=== PATIENT | female | born 1955 | race Caucasian/White ===

== ENCOUNTER 2018-07-07 10:59 | Inpatient (IN) | payer MEDICAID ==
[~2018-07-07] VITALS: Ht 160 cm; Wt 54.4 kg
--- NOTE | ~2018-07-07 | OP ---
PATIENT NAME: BAHMAN MACKENZIE MEDICAL RECORD: [id number] :[birth year] LOCATION:D.MS [facility] ADMISSION DATE:07/07/18 SURGEON: DELMY ROMANO MD DATE OF OPERATION: 07/07/2018 PREOPERATIVE DIAGNOSES: 1. Acute cholecystitis with localized peritonitis. 2. Elevated liver function test. POSTOPERATIVE DIAGNOSES: 1. Acute cholecystitis with localized peritonitis. 2. Elevated liver function test. 3. Bilious ascites. PROCEDURES: 1. Laparoscopic cholecystectomy. 2. Intraoperative cholangiography without immediate surgeon interpretation. 3. A 14-gauge core needle liver biopsy. SURGEON: Delmy Romano MD STRADDLE CARRIER OPERATOR: None. BLOOD LOSS: Less than 25 cc. ANESTHESIA: General. COMPLICATIONS: None. The risks, possible complications, and alternatives to the procedure were explained to the patient. She elects to proceed. The discussion specifically included, but was not limited to, bleeding requiring emergency reoperation, infection, intestinal injury, common bile duct injury. The patient has been febrile. She has elevated liver function tests including AST and ALT. I saw the patient prior to surgery. DESCRIPTION OF PROCEDURE: The patient was conveyed to the operating room urgently on 07/07/2018. General anesthesia was induced by the anesthesia staff. The abdomen was sterilely prepped and draped. A small skin lul was accomplished in the left upper quadrant. A Veress needle was inserted through the skin lul into the peritoneal cavity. CO2 insufflation was begun. Once a sufficient pneumoperitoneum had been achieved, a 5-mm trocar was inserted through an incision in the left upper quadrant. Under direct internal vision utilizing the television camera, a 12-mm trocar was inserted through an incision at the umbilicus. Another 5-mm trocar was inserted through an incision in the right upper quadrant. Another 5-mm trocar was inserted through an incision far laterally in the right upper quadrant. During insertion of the Veress needle and all trocars, there appeared to have been no injury to the bowels, any intraperitoneal or retroperitoneal structures. Abdominal survey was undertaken. There was purulence around the gallbladder. Omentum had also wrapped around the gallbladder. Bilious ascites was noted lateral to the liver. This was aspirated. OPERATIVE REPORT [id number] BAHMAN MACKENZIE The indication for the liver biopsy was elevated liver function test. Under laparoscopic guidance, I percutaneously accessed the right upper quadrant utilizing a 14-gauge core biopsy device. Cores were obtained over the convexity of the liver. The biopsy sites were made hemostatic with electrocautery. I then swept down the omentum which was stuck to the gallbladder. The gallbladder was acutely inflamed. I noted no gangrene or full-thickness necrosis however. I advanced a cholangiogram trocar. I punctured the fundus of the gallbladder. I aspirated what appeared to be turbid mucoid material, indicating that this is likely acute cholecystitis due to a mucocele of the gallbladder. I then injected dye. Real time cholangiographic images were obtained and these were sent to the radiologist for interpretation. I then aspirated bile and mucus, and withdrew the cholangiogram trocar. The gallbladder was grasped and retracted cephalad. The infundibulum was grasped and retracted laterally. Blunt dissection was begun in the triangle of Calot. The critical view was identified. The cystic artery was clipped multiply and divided between clips. I noted that the cystic duct was thickened and somewhat dilated. This was going to require a larger clip. I exchanged the left upper quadrant 5-mm trocar for a 12-mm trocar. I then advanced the nondisposable clip bushing press operator and applied large clips around the cystic duct. I then transected the cystic duct between the clips. I then excised the gallbladder from the liver utilizing the electrocautery. The gallbladder and stones were removed in 2 separate endoscopic retrieval bags. The 12-mm trocar was replaced and the abdomen was reinsufflated. I irrigated and aspirated the right upper quadrant. There was no bleeding even at low pressure of 8. The 12-mm trocar sites were closed with the Emeterio-Nura suture closure device and #0 Vicryl sutures. All the trocars were removed and the abdomen was desufflated. Skin incision at the umbilicus was closed with interrupted 4-0 Vicryl Rapide sutures. The other skin incisions were closed with interrupted intracuticular 3-0 Vicryls. Benzoin and Steri-Strips were applied. The patient was then extubated and conveyed to the postanesthesia care unit, where she was in stable condition. My plan is that she may be dismissed home tomorrow. TRANSINT:[id number] Voice Confirmation ID: [id number] DOCUMENT ID: [id number] OPERATIVE REPORT [id number] BAHMAN MACKENZIE ROBERT MD CC: CELIA ANAND MD [id number] DICTATION DATE: 07/08/18 140 MICA MACHINE OPERATOR: 07/08/18 193 ADM IN [place] [address] [place] [id number]
[2018-07-07] MEDS ORDERED: TIROSINT25 MCG PO (11:11)
[2018-07-07] MEDS ORDERED: NEURONTIN800 MG PO (11:11)
[2018-07-07] MEDS ORDERED: ZOLOFT25 MG PO (11:17)
[2018-07-07 11:22] LABS: BASOPHILS 0.1 % (0-2); EOSINOPHILS 0.4 % (0-7); HEMATOCRIT 44.2 % (36.0-48.0); HEMOGLOBIN 15.2 g/dL (12-16); IMMATURE GRANULOCYTES 0.3 % (0-5); LYMPHOCYTES 11.4 % (15-50); MCH 31.7 pg (26.0-34.0); MCHC 34.4 g/dL (31.0-37.0); MCV 92.3 fL (80.0-100.0); MEAN PLATELET VOLUME 10.9 fL (7.4-10.4); MONOCYTES 7.4 % (2-11); NEUTROPHILS 80.4 % (40-80); PLATELET COUNT 222 10x3/uL (130-400); RBC 4.79 10x6/uL (4.00-5.40); RDW 13.7 % (11.5-14.5); WBC 15.6 10x3/uL (4.8-10.8)
[2018-07-07 11:36] LABS: APTT 26.5 SECONDS (22.8-39.4); INR 0.95 (0.85-1.17); PROTIME 12.2 SECONDS (11.6-15.0)
[2018-07-07 11:40] LABS: ALBUMIN 3.8 g/dL (3.4-5.0); ALKALINE PHOSPHATASE 74 U/L (46-116); ALT (SGPT) 28 U/L (10-68); BILIRUBIN - TOTAL 0.72 mg/dL (0.2-1.3); CALC OSMOLALITY 278 mosm/kg (275-300); CALCIUM 8.9 mg/dL (8.5-10.1); CARBON DIOXIDE 27.4 mmol/L (21.0-32.0); CHLORIDE - SERUM 103 mmol/L (98-107); CREATININE - SERUM 0.5 mg/dL (0.6-1.3); GLUCOSE 113 mg/dL (74-106); POTASSIUM - SERUM 3.8 mmol/L (3.5-5.1); PROTEIN - SERUM 7.1 g/dL (6.4-8.2); SODIUM 140 mmol/L (136-145); UREA NITROGEN 9 mg/dL (7-18); eGFR NON AFRICAN AMERICAN > 90 mL/min (90-120)
[2018-07-07 11:52] LABS: CKMB 0.4 U/L (0.0-3.6); CREATINE KINASE 99 UL (21-215)
[2018-07-07 11:53] LABS: TROPONIN-I < 0.017 ng/mL (0.000-0.060)
[2018-07-07 12:23] LABS: APPEARANCE CLEAR (CLEAR); BILIRUBIN NEGATIVE (NEGATIVE); COLOR YELLOW (YELLOW); GLUCOSE NEGATIVE (NEGATIVE); KETONE NEGATIVE (NEGATIVE); NITRITE NEGATIVE (NEGATIVE); PROTEIN NEGATIVE (NEGATIVE); SPECIFIC GRAVITY 1.005 (1.005-1.020); UROBILINOGEN NORMAL (NORMAL)
[2018-07-07 12:24] LABS: AMORPHOUS SEDIMENT >1+ /lpf (NONE SEEN); BACTERIA MODERATE /hpf (NONE SEEN); EPITHELIAL CELLS OCC /hpf (0-5); MUCUS >1+ /lpf (NONE SEEN); WHITE CELLS - URINE 0-5 /hpf (0-5)
[2018-07-07 13:01] VITALS: BP 120/60
[2018-07-07 14:00] VITALS: BP 118/62
[2018-07-07 16:54] VITALS: BP 122/63
[2018-07-07 17:33] VITALS: BP 112/52; BMI 21.3
--- NOTE | 2018-07-07 17:41 | MORECARE ---
CASE MANAGEMENT DISCHARGE SUMMARY PATIENT: BAHMAN MACKENZIE UNIT: [id number] ADM DATE: 07/07/18 AGE: 63 : 59 SEX: F ROOM/BED: D.2213 AUTHOR: LALODOC PHYSICIAN: REFERRING PHYSICIAN: CELIA ANAND MD DATE OF SERVICE: 07/07/18 Discharge Plan Patient Name: BAHMAN MACKENZIE Facility[facility]:[place] : 1955 Planned Disposition: Home Anticipated Discharge Date: Discharge Date: Expected LOS: Initial Reviewer: [email or web address] Initial Review Date: 07/07/2018 Generated: 07/07/18 6:40 pm DCP- Discharge Planning Updated by [email or web address]: Imelda Chavez on 07/07/18 4:[address] Patient Name: BAHMAN MACKENZIE Admission Status: ER Accout number: [id number] Admission Date: 07-07-2018 : 1955 Admission Diagnosis: Attending: CELIA ANAND Current LOS: 1 Anticipated DC Date: Planned Disposition: Home Primary Insurance: MEDICAID [place] Discharge Planning Comments: CM met with patient to complete initial dc planning assessment. CM educated patient on the CM role and verbal consent given by patient to complete assessment. CM verified patient's address, phone number, and emergency contact phone numbers. Patient lives at home alone and reports she is independent in her care at home. At discharge patient plans to return home alone and feels this is a safe discharge. CM discussed availability of home health, rehab services, and medical equipment. Patient denied known discharge needs at this time. Patient reports her son or her ex will transport him/her home at time of discharge. CM will continue to follow and will assist as needed with dc plans/needs. Director Of Physician Practices: Imelda Chavez RN, [facility] DCPIA - Discharge Planning Initial Assessment Updated by [email or web address]: Imelda Chavez on 07/07/18 5:38 pm * Is the patient Alert and Oriented? Yes * How many steps to enter\exit or inside your home? none * PCP No PCP at this time * Pharmacy Does not use a pharmacy at this time * Preadmission Environment Home Alone * ADLs Independent * Equipment None * List name and contact numbers for known caregivers / representatives who currently or will assist patient after discharge: Reuben cuellar - [phone] * Verbal permission to speak to the caregivers and representatives has been obtained from the patient. Yes * Community resources currently utilized None * Additional services required to return to the preadmission environment? No * Can the patient safely return to the preadmission environment? Yes * Has this patient been hospitalized within the prior 30 days at any hospital? No Patient Name: BAHMAN MACKENZIE Page 47027 at 1741 All edits/amendments must be made on the electronic document DICTATION DATE: 07/07/181739 LIVESTOCK FARMER: BRIDGET 07/07/181739 RPT#: [id number] DC DATE: STATUS: ADM IN [facility] [address] [place] [address] END OF REPORT
[2018-07-07 20:00] VITALS: BP 120/67
[2018-07-08] VITALS: BP 98/51
[2018-07-08 04:00] VITALS: BP 91/43
[2018-07-08 07:28] LABS: HEMATOCRIT 41.5 % (36.0-48.0); MCH 31.5 pg (26.0-34.0); MCHC 33.7 g/dL (31.0-37.0); MCV 93.5 fL (80.0-100.0); MEAN PLATELET VOLUME 11.4 fL (7.4-10.4); PLATELET COUNT 203 10x3/uL (130-400); RBC 4.44 10x6/uL (4.00-5.40); RDW 13.9 % (11.5-14.5); WBC 20.3 10x3/uL (4.8-10.8)
[2018-07-08 07:34] LABS: ALBUMIN 3.2 g/dL (3.4-5.0); ALKALINE PHOSPHATASE 88 U/L (46-116); BILIRUBIN - TOTAL 0.87 mg/dL (0.2-1.3); CALC OSMOLALITY 282 mosm/kg (275-300); CALCIUM 8.5 mg/dL (8.5-10.1); CARBON DIOXIDE 27.8 mmol/L (21.0-32.0); CHLORIDE - SERUM 107 mmol/L (98-107); CREATININE - SERUM 0.5 mg/dL (0.6-1.3); GLUCOSE 115 mg/dL (74-106); MAGNESIUM - SERUM 2.2 mg/dL (1.8-2.4); PHOSPHOROUS 3.2 mg/dL (2.5-4.9); POTASSIUM - SERUM 3.8 mmol/L (3.5-5.1); PROTEIN - SERUM 6.5 g/dL (6.4-8.2); SODIUM 142 mmol/L (136-145); UREA NITROGEN 10 mg/dL (7-18); eGFR NON AFRICAN AMERICAN > 90 mL/min (90-120)
[2018-07-08 07:36] LABS: INR 1.12 (0.85-1.17); PROTIME 13.9 SECONDS (11.6-15.0)
[2018-07-08 07:37] LABS: ALT (SGPT) 141 U/L (10-68)
[2018-07-08 08:09] LABS: LYMPHOCYTES 4 % (15-50); MONOCYTES 2 % (2-11); NEUTROPHILS 90 % (40-80); PLATELET ESTIMATE NORMAL
[2018-07-08 08:23] LABS: THYROID STIMULATING HORMONE 0.57 uIU/mL (0.36-3.74)
[2018-07-08 09:05] VITALS: BP 105/45
[2018-07-08 14:14] VITALS: BP 131/48
[2018-07-08 16:34] VITALS: BP 131/57
[2018-07-08 20:00] VITALS: BP 128/50
[2018-07-09] VITALS: BP 121/59
[2018-07-09 04:00] VITALS: BP 99/36
[2018-07-09 05:46] LABS: BASOPHILS 0 % (0-2); EOSINOPHILS 0 % (0-7); HEMATOCRIT 35.3 % (36.0-48.0); HEMOGLOBIN 11.7 g/dL (12-16); IMMATURE GRANULOCYTES 0.2 % (0-5); MCH 31.2 pg (26.0-34.0); MCHC 33.1 g/dL (31.0-37.0); MCV 94.1 fL (80.0-100.0); MEAN PLATELET VOLUME 10.8 fL (7.4-10.4); MONOCYTES 11.5 % (2-11); NEUTROPHILS 80.3 % (40-80); PLATELET COUNT 170 10x3/uL (130-400); RBC 3.75 10x6/uL (4.00-5.40); RDW 14.1 % (11.5-14.5)
[2018-07-09 05:48] LABS: WBC 12.6 10x3/uL (4.8-10.8)
[2018-07-09 06:03] LABS: ALBUMIN 2.6 g/dL (3.4-5.0); ALKALINE PHOSPHATASE 80 U/L (46-116); ALT (SGPT) 110 U/L (10-68); BILIRUBIN - TOTAL 0.92 mg/dL (0.2-1.3); CALC OSMOLALITY 276 mosm/kg (275-300); CALCIUM 7.9 mg/dL (8.5-10.1); CARBON DIOXIDE 28.1 mmol/L (21.0-32.0); CHLORIDE - SERUM 105 mmol/L (98-107); CREATININE - SERUM 0.5 mg/dL (0.6-1.3); GLUCOSE 104 mg/dL (74-106); MAGNESIUM - SERUM 2.1 mg/dL (1.8-2.4); POTASSIUM - SERUM 3.6 mmol/L (3.5-5.1); PROTEIN - SERUM 5.7 g/dL (6.4-8.2); SODIUM 140 mmol/L (136-145); UREA NITROGEN 8 mg/dL (7-18); eGFR NON AFRICAN AMERICAN > 90 mL/min (90-120)
[2018-07-09 06:09] LABS: TROPONIN-I < 0.017 ng/mL (0.000-0.060)
[2018-07-09 06:10] LABS: PHOSPHOROUS 1.4 mg/dL (2.5-4.9)
[2018-07-09 09:02] VITALS: BP 108/58
[2018-07-09 09:11] VITALS: Ht 160 cm; Wt 54.4 kg
--- NOTE | 2018-07-09 12:10 | MORECARE ---
CASE MANAGEMENT DISCHARGE SUMMARY PATIENT: BAHMAN MACKENZIE UNIT: [id number] ADM DATE: 07/07/18 AGE: 63 : 59 SEX: F ROOM/BED: D.2213 AUTHOR: LEIDY MAY PHYSICIAN: REFERRING PHYSICIAN: CELIA ANAND MD DATE OF SERVICE: 07/09/18 Discharge Plan Patient Name: BAHMAN MACKENZIE Facility: [facility]:[place] : 1955 Planned Disposition: Home Anticipated Discharge Date: Discharge Date: Expected LOS: Initial Reviewer: [email or web address] Initial Review Date: 07/07/2018 Generated: 07/09/18 1:10 pm Comments DCP- Discharge Planning Updated by [email or web address]: mIelda Chavez on 07/09/18 11:[address] Patient Name: BAHMAN MACKENZIE Encounter No: [id number] : 1955 Primary Insurance: MEDICAID [place] Anticipated DC Date: Planned Disposition: Home [address] [facility] External Planned Provider: : DCP follow-up note: Patient in agreement with discharge plan. Patient reports she lives in an apartment on [facility] [address]. She reported she does not have any way to get to her apartment. She agrees that her dc plan is safe. She is hopeful to have transportation soon and reports she recently moved here. She denied further needs. Taxi voucher given as she also said she has no money to pay for the voucher. No changes to plan. Case management will follow and assist as needed. Imelda Chavez RN, [facility] DCP- Discharge Planning Updated by [email or web address]: Imelda Chavez on 07/07/18 4:[address] Patient Name: BAHMAN MACKENZIE Admission Status: ER Accout number: [id number] Admission Date: 07-07-2018 : 1955 Admission Diagnosis: Attending: CELIA ANAND Current LOS: 1 Anticipated DC Date: Planned Disposition: Home Primary Insurance: MEDICAID [place] Discharge Planning Comments: CM met with patient to complete initial dc planning assessment. CM educated patient on the CM role and verbal consent given by patient to complete assessment. CM verified patient's address, phone number, and emergency contact phone numbers. Patient lives at home alone and reports she is independent in her care at home. At discharge patient plans to return home alone and feels this is a safe discharge. CM discussed availability of home health, rehab services, and medical equipment. Patient denied known discharge needs at this time. Patient reports her son or her ex will transport him/her home at time of discharge. CM will continue to follow and will assist as needed with dc plans/needs. Hand Tier: Imelda Chavez RN, [facility] DCPIA - Discharge Planning Initial Assessment Updated by [email or web address]: Imelda Chavez on 07/07/18 5:38 pm * Is the patient Alert and Oriented? Yes * How many steps to enter\exit or inside your home? none * PCP No PCP at this time * Pharmacy Does not use a pharmacy at this time * Preadmission Environment Home Alone * ADLs Independent * Equipment None * List name and contact numbers for known caregivers / representatives who currently or will assist patient after discharge: Reuben Rowan [facility] - [phone] * Verbal permission to speak to the caregivers and representatives has been obtained from the patient. Yes * Community resources currently utilized None * Additional services required to return to the preadmission environment? No * Can the patient safely return to the preadmission environment? Yes * Has this patient been hospitalized within the prior 30 days at any hospital? No Last DP export: 07/07/18 4:41 p Patient Name: BAHMAN MACKENZIE Page [phone] at 1210 All edits/amendments must be made on the electronic document DICTATION DATE: 07/09/18 1210 TOOLMAKER HELPER: BRIDGET 07/09/18 1210 RPT#: [id number] DC DATE: STATUS: ADM IN [facility] [address] [place] [address] END OF REPORT
[2018-07-09] MEDS ORDERED: HYDROCODON-ACE1 EAC7 PO (12:17)
--- NOTE | 2018-07-10 16:18 | MORECARE ---
CASE MANAGEMENT DISCHARGE SUMMARY PATIENT: BAHMAN MACKENZIE UNIT: [id number] ADM DATE: 07/07/18 AGE: 63 : 59 SEX: F ROOM/BED: D.2213 AUTHOR: LEIDY MAY PHYSICIAN: REFERRING PHYSICIAN: CELIA ANADN MD DATE OF SERVICE: 07/10/18 Discharge Plan Patient Name: BAHMAN MACKENZIE Facility: [facility]:[place] : 1955 Planned Disposition: Home Anticipated Discharge Date: Discharge Date: 07/09/2018 Expected LOS: 0 Initial Reviewer: [email or web address] Initial Review Date: 07/07/2018 Generated: 07/10/18 5:18 pm Comments DCP- Discharge Planning Updated by [email or web address]: Imelda Chavez on 07/09/18 11:[address] Patient Name: BAHMAN MACKENZIE Encounter No: [id number] : 1955 Primary Insurance: MEDICAID [place] Anticipated DC Date: Planned Disposition: Home [address] [facility] External Planned Provider: : DCP follow-up note: Patient in agreement with discharge plan. Patient reports she lives in an apartment on [address]. She reported she does not have any way to get to her apartment. She agrees that her dc plan is safe. She is hopeful to have transportation soon and reports she recently moved here. She denied further needs. Taxi voucher given as she also said she has no money to pay for the voucher. No changes to plan. Case management will follow and assist as needed. Imelda Chavez RN, [facility] DCP- Discharge Planning Updated by [email or web address]: Imelda Chavez on 07/07/18 4:[address] Patient Name: BAHMAN MACKENZIE Admission Status: ER Accout number: [id number] Admission Date: 07-07-2018 : 1955 Admission Diagnosis: Attending: CELIA ANAND Current LOS: 1 Anticipated DC Date: Planned Disposition: Home Primary Insurance: MEDICAID [place] Discharge Planning Comments: CM met with patient to complete initial dc planning assessment. CM educated patient on the CM role and verbal consent given by patient to complete assessment. CM verified patient's address, phone number, and emergency contact phone numbers. Patient lives at home alone and reports she is independent in her care at home. At discharge patient plans to return home alone and feels this is a safe discharge. CM discussed availability of home health, rehab services, and medical equipment. Patient denied known discharge needs at this time. Patient reports her son or her ex will transport him/her home at time of discharge. CM will continue to follow and will assist as needed with dc plans/needs. Respite Care Provider: Imelda Chavez RN, [facility] DCPIA - Discharge Planning Initial Assessment Updated by [email or web address]: Imelda Chavez on 07/07/18 5:38 pm * Is the patient Alert and Oriented? Yes * How many steps to enter\exit or inside your home? none * PCP No PCP at this time * Pharmacy Does not use a pharmacy at this time * Preadmission Environment Home Alone * ADLs Independent * Equipment None * List name and contact numbers for known caregivers / representatives who currently or will assist patient after discharge: Reuben Rowan [facility] - [phone] * Verbal permission to speak to the caregivers and representatives has been obtained from the patient. Yes * Community resources currently utilized None * Additional services required to return to the preadmission environment? No * Can the patient safely return to the preadmission environment? Yes * Has this patient been hospitalized within the prior 30 days at any hospital? No Last DP export: 07/09/18 11:10 a Patient Name: BAHMAN MACKENZIE Page 61605 at 1618 All edits/amendments must be made on the electronic document DICTATION DATE: 07/10/181616 COMMUNITY HEALTH COORDINATOR: BRIDGET 07/10/181616 RPT#: [id number] DC DATE:07/09/18 STATUS: DIS IN [facility] [address] [place] [address] END OF REPORT
== END 2018-07-09 14:28 | disposition home or self-care (01) | DRG 417 ==
LOC: D.ER 10:59 → D.MS 16:40
PROVIDERS: Family Medicine; Surgery; ADMIT Internal Medicine Nephrology; ATTEND Internal Medicine Nephrology
PROC: 0FT44ZZ Resection of Gallbladder, Percutaneous Endoscopic Approach (ICD-10-PCS; principal; 2018-07-07)
PROC: 0FB04ZX Excision of Liver, Percutaneous Endoscopic Approach, Diagnostic (ICD-10-PCS; 2018-07-07)
DX: K81.0 Acute cholecystitis (principal); K65.8 Other peritonitis; R18.8 Other ascites; F41.8 Other specified anxiety disorders

== ENCOUNTER 2018-12-07 16:25 | Emergency (ER) | payer MEDICARE ==
[~2018-12-07] VITALS: Ht 160 cm; Wt 55.5 kg
[~2018-12-07 16:25] MED LIST: HYDROCODON-ACE1 EAC7 PO; NEURONTIN800 MG PO; TIROSINT25 MCG PO; ZOLOFT25 MG PO
[2018-12-07 16:28] VITALS: Ht 160 cm; Wt 55.5 kg
[2018-12-07 17:15] LABS: BASOPHILS 0.2 % (0-2); EOSINOPHILS 1.4 % (0-7); HEMATOCRIT 43.4 % (36.0-48.0); HEMOGLOBIN 14.5 g/dL (12-16); IMMATURE GRANULOCYTES 0.2 % (0-5); LYMPHOCYTES 20.3 % (15-50); MCH 31.7 pg (26.0-34.0); MCHC 33.4 g/dL (31.0-37.0); MCV 94.8 fL (80.0-100.0); MONOCYTES 6.8 % (2-11); NEUTROPHILS 71.1 % (40-80); RBC 4.58 10x6/uL (4.00-5.40); RDW 14.1 % (11.5-14.5); WBC 10.4 10x3/uL (4.8-10.8)
[2018-12-07 17:16] LABS: CALC OSMOLALITY 281 mosm/kg (275-300); CALCIUM 9.1 mg/dL (8.5-10.1); CHLORIDE - SERUM 105 mmol/L (98-107); CREATININE - SERUM 0.6 mg/dL (0.6-1.3); GLUCOSE 85 mg/dL (74-106); POTASSIUM - SERUM 3.8 mmol/L (3.5-5.1); SODIUM 142 mmol/L (136-145); UREA NITROGEN 12 mg/dL (7-18); eGFR NON AFRICAN AMERICAN > 90 mL/min (90-120)
[2018-12-07 17:19] LABS: ALKALINE PHOSPHATASE 73 U/L (46-116); ALT (SGPT) 22 U/L (10-68); AMYLASE - SERUM 63 U/L (25-115); BILIRUBIN - TOTAL 0.44 mg/dL (0.2-1.3); LIPASE 160 U/L (73-393); PROTEIN - SERUM 6.9 g/dL (6.4-8.2)
[2018-12-07 17:20] LABS: PLATELET COUNT 232 10x3/uL (130-400)
[2018-12-07 17:20] LABS: APPEARANCE HAZY (CLEAR); BILIRUBIN NEGATIVE (NEGATIVE); COLOR RED (YELLOW); GLUCOSE NEGATIVE (NEGATIVE); KETONE NEGATIVE (NEGATIVE); NITRITE NEGATIVE (NEGATIVE); PROTEIN TRACE mg/dL (NEGATIVE); UROBILINOGEN NORMAL (NORMAL)
[2018-12-07 17:26] LABS: BACTERIA FEW /hpf (NEGATIVE); EPITHELIAL CELLS OCC /hpf (0-5); RED CELLS - URINE >50 /hpf (0-5); WHITE CELLS - URINE 0-5 /hpf (NEGATIVE)
[2018-12-07 22:50] VITALS: BP 128/77
== END 2018-12-07 22:50 | disposition home or self-care (01) ==
LOC: D.ER 16:25
PROVIDERS: Family Medicine
DX: R31.9 Hematuria, unspecified (principal); N20.0 Calculus of kidney

== ENCOUNTER → 2019-01-04 19:52 | Outpatient (CLI) | payer MEDICARE, MEDICAID ==
[2018-12-07 16:28] VITALS: BMI 21.6
== END | disposition home or self-care (01) ==
LOC: D.LAB 19:52
PROVIDERS: ATTEND Urology
DX: R31.9 Hematuria, unspecified (principal); R82.90 Unspecified abnormal findings in urine

== ENCOUNTER 2019-01-24 09:47 | Day surgery (SDC) | payer MEDICARE ==
[~2019-01-24] VITALS: Ht 160 cm; Wt 55.3 kg
[2019-01-24 10:13] LABS: HEMOGLOBIN 14.6 g/dL (12-16); MCH 31.7 pg (26.0-34.0); MCHC 33.2 g/dL (31.0-37.0); MCV 95.4 fL (80.0-100.0); MEAN PLATELET VOLUME 10.8 fL (7.4-10.4); RBC 4.61 10x6/uL (4.00-5.40); RDW 13.9 % (11.5-14.5); WBC 9.9 10x3/uL (4.8-10.8)
[2019-01-24 11:44] VITALS: Ht 160 cm; Wt 55.3 kg
[2019-01-24] MEDS ORDERED: HYDROCODON-ACE1 EAC7 PO (15:43)
--- NOTE | 2019-01-24 16:26 | NUR ---
1550-ASSISTED PT TO RESTROOM. ABLE TO URINATE WITHOUT COMPLICATIONS.VSS.REPORTS PAIN A 2/10. TOLERATED COFFEE.
--- NOTE | 2019-01-24 16:27 | NUR ---
1620-FULL LIQUID TRAY TO ROOM.
--- NOTE | 2019-01-24 16:28 | NUR ---
1630-DISCHARGE CRITERIA MET. TOLERATED FULL LIQUID TRAY.VSS. ABLE TO AMBULATE TO RESTROOM AND URINATE AGAIN WITHOUT COMPLICATONS. DISCHARGE CRITERIA MET. REMOVED IV FROM LEFT ARM WITH CATH INTACT,DISPOSED INTO SHARPS.COVERED SITE WITH GUAZE,SECURED WITH MEDIPORE TAPE. REVIEWED POST OP INSTRUCTIONS,FOLLOW UP APPOINTMENT WITH HANNAH AND ZARINA APPOINTMENT SCHEDULED. VERBALIZED UNDERSTANDING. VERY PLEASANT TO CARE FOR. CONTINUE TO WAIT FOR DAUGHTER TO PICK HER UP
--- NOTE | 2019-01-24 16:44 | NUR ---
1645-PT CONTINUE TO WAIT FOR RIDE HOME. STRAINER AND CUP TO ROOM FOR DISCHARGE USE. VERBALIZED UNDERSTANDING OF USAGE
--- NOTE | 2019-01-24 17:00 | NUR ---
PATIENT AWAITING DISCHARGE TRANSPORTATION, PATIENT HAS MET DISCHARGE CRITERIA, SITTING ON BED IN ROOM, LOOKING AT CELL PHONE, DENIES NEEDS OR COMPLAINTS, WANTS TO GO SIT OUTSIDE AND WAIT FOR HER SON'S FRIEND WHO IS COMING TO GET HER. EXPLAINED THAT FACILITY POLICY IS THAT PATIENT MUST WAIT IN ROOM FOR TRANSPORTATION TO ARRIVE AT THE FACILITY, PATIENT AGREEABLE
--- NOTE | 2019-01-24 17:43 | NUR ---
PATIENT'S FRIEND COMES TO PROVIDE TRANSPORTATION, PATIENT WHEELED TO OUTPATIENT ENTRANCE IN WHEELCHAIR AND PATIENT GETS INTO PRIVATE VEHICLE WITH FRIEND "SEAN."
--- NOTE | 2019-01-25 09:19 | OP ---
PATIENT NAME: BAHMAN MACKENZIE MEDICAL RECORD: [id number] :[birth year] LOCATION:D.OPS ADMISSION DATE: SURGEON: BIN YOUNG MD DATE OF OPERATION: 01/24/2019 SURGEON: Bin Young MD ANESTHESIA: General anesthesia by Mil Castellanos CRNA DIAGNOSIS: An 8-mm left distal ureteral stone, right renal stones 5 and 8 mm. PROCEDURE: Cystoscopy, left ureteral stent insertion 6-South [place]ese x 22 cm with string attached, left ESWL times 4000 shocks. FINDINGS: Triangular-shaped left distal ureteral stone, 8 mm in length, 2 right renal stones 5 and 7 mm in the upper and lower pole. Single ureteral orifices bilaterally with no bladder tumors. ESTIMATED BLOOD LOSS: None. CLINICAL HISTORY: This is a 63-year-old female, who initially presented with left flank pain. She was found on imaging to have a large stone in the left distal ureter, causing left proximal hydronephrosis. There are also said to be bilateral renal stones. She comes to have lithotripsy of the left distal ureteral stone today. DESCRIPTION OF PROCEDURE: We placed the patient on the OR treatment table. We performed fluoroscopy. A large triangular density was seen in the left hemipelvis. No other stones could be seen in the left kidney. In the right kidney, we saw 2 stones, one in the upper pole and one in the lower pole. These are about 5 and 7 mm respectively. We decided to proceed with treatment of the left distal ureteral stone. The patient was given induction of general anesthesia. She was given Ancef data acquisition technician to the OR. We performed cystoscopy with a 21-[place]ese cystoscope with 30-degree lens. The left ureteral orifice was discovered and a Sensor wire was put into the left ureteral orifice. This ran up against the stone and after some time, we managed to get the wire to get past the stone up into the renal pelvis. We then placed over the wire a 6-[place]ese x 22 cm ureteral stent. Once the stent was in correct position, the wire was withdrawn entirely. The stent was pushed into the bladder using the pusher. The bladder was then emptied through the cystoscope sheath and the scope was removed. The string on the distal end of the stent is maintained. It hangs out of the urethra. It was taped to the suprapubic region with a piece of Tegaderm. The ureteral stone in the left side was targeted in 2 planes. She was given 4000 shocks to completely break it up. I will see her back in about 1 months' time with KUB. If the stone has entirely gone, we can remove the stent by pulling on the string. We will also make arrangements at that time to perform right ureteral stent insertion and right ESWL of the 2 renal stone on the right side. TRANSINT:[id number] Voice Confirmation ID: [id number] DOCUMENT ID: [id number] OPERATIVE REPORT [id number] BAHMAN MACKENZIE ROBERT S MD at 0919 CC: [id number] DICTATION DATE: 01/24/19 1432 SATELLITE DISH TECHNICIAN: 01/24/19 2213 [facility] 01/24/19 [place] [address] [place] [address]
== END 2019-01-24 17:43 | disposition home or self-care (01) ==
LOC: D.OPS 09:47 → D.PAN 10:50 → D.OPS 10:50 → D.PAN 10:55 → D.OPS 11:00 → D.PAN 11:30 → D.OPS 11:45 → D.PAN 11:45 → D.OPS 12:15 → D.PAN 12:20 → D.OPS 17:43
PROVIDERS: Anesthesiology; ATTEND Urology
DX: N20.2 Calculus of kidney with calculus of ureter (principal); R31.0 Gross hematuria; Z72.0 Tobacco use

== ENCOUNTER → 2019-02-14 09:42 | Outpatient (CLI) | payer MEDICARE, MEDICAID ==
[2019-01-24 11:44] VITALS: BMI 21.6
== END | disposition home or self-care (01) ==
LOC: D.RAD 09:42
PROVIDERS: ATTEND Urology
DX: N20.1 Calculus of ureter (principal)

== ENCOUNTER → 2020-06-25 21:39 | Outpatient (CLI) | payer MEDICARE, MEDICAID ==
[2019-01-24 11:44] VITALS: BMI 21.6
== END | disposition home or self-care (01) ==
LOC: D.MAMMO 06-22 11:15
PROVIDERS: ATTEND Clinical Nurse Specialist Family Health
DX: Z12.31 Encounter for screening mammogram for malignant neoplasm of breast (principal)